=== PATIENT | female | born 1990 | race Two or more races ===

== ENCOUNTER 2025-05-23 14:12 | Emergency (ER) | payer MEDICAID, OTHER ==
[~2025-05-23] VITALS: Ht 170.2 cm; Wt 73.1 kg
[2025-05-23 15:28] LABS: Hematocrit 39.3 % (36.0-46.0); Hemoglobin 13.3 g/dL (12.2-16.2); Mean Corpuscular Hemoglobin 29.5 pg (28.0-32.0); Mean Corpuscular Volume 87.2 fL (80.0-100.0); Nucleated Red Blood Cells % 0.0 %
--- NOTE | 2025-05-23 15:30 | ED.PDOC ---
History of Present Illness HPI Comments 34 y/o F presents with c/c of headache, dizziness, bilateral lower quadrant abdominal pain, nausea, vomiting, fever, chills, and tremors x2 days. Denial of any bloody or bilious vomitus, urinary problems, or further acute symptoms. Known positive sick contacts at home. Only history of nicotine vape use and c osmetic liposuction and breast augmentation surgery. Chief Complaint: General Weakness Time Seen by MD: 14:40 Reviewed Notes: Nurses Notes, Medications, Allergies Allergies: Coded Allergies: Diphenhydramine (Verified Allergy, Unknown, 05/23/25) Metoclopramide (Verified Allergy, Unknown, 05/23/25) Home Meds Active Scripts Ondansetron Odt 4MG Tab (ZOFRAN PO) 4 Mg Tb, 4 MG PO Q12HP PRN for 5 Days, #10 TAB ODT TAB-DISSOLVE IN MOUTH, THEN SWALLOW Prov:COLETTE MCCLAIN MD 05/23/25 Information Source: Patient Mode of Arrival: Ambulatory Severity: Moderate Timing: Days Duration: Since onset Prehospital treatment: None Past Medical History PAST MEDICAL HISTORY: Denies Surgical History (Other): cosmetic liposuction and breast augmentation surgery [employer] History: No Pertinent [employer] History Family History Family History: Family hx of DM, Family hx of Cancer, Family hx of heart corina, Family hx of HTN, Family hx of Kidney corina, Family hx of liver corina, Family hx of lung corina, Family hx of stroke Social History Smoker: Other (nicotine vape use ) Alcohol: Denies ETOH Use Drugs: Denies Drug Use Lives In: Home Constitutional: reports: chills, fever; denies: diaphoresis, fatigue, malaise, sweats, weakness, others EENTM: denies: blurred vision, double vision, ear bleeding, ear discharge, ear drainage, ear pain, ear ringing, eye pain, eye redness, hearing loss, mouth p ain, mouth swelling, nasal discharge, nose bleeding, nose congestion, nose pain, photophobia, tearing, throat pain, throat swelling, voice changes, others Respiratory: denies: cough, hemoptysis, orthopnea, SOB at rest, shortness of br eath, SOB with excertion, stridor, wheezing, others Cardiovascular: denies: chest pain, dizzy spells, diaphoresis, Dyspnea on exertion, edema, irregular heart beat, left arm pain, lightheadedness, palpitations, PND, syncope, others Gastrointestinal: reports: abdominal pain, diarrhea, nausea, vomiting; denies: abdomen distended, blood streaked bowels, constipated, dysphagia, difficulty swallowing, hematemesis, melena, poor appetite, poor fluid intake, rectal bleeding, rectal pain, others Genitourinary: denies: abnormal vagina bleeding, burning, dyspareunia, dysuria, flank pain, frequency, hematuria, incontinence, pain, , vagina discharge, urgency, others Neurological: reports: dizziness, headache; denies: fainting, left sided numbness, left sided weakness, numbness, paresthesia, pre-existing deficit, right sided numbness, right sided weakness, seizure, speech problems, tingling, tremors, weakness, others Musculoskeletal: denies: back pain, gout, joint pain, joint swelling, muscle pain, muscle stiffness, neck pain, others Integumetry: denies: bruises, change in color, change in hair/nails, dryness, laceration, lesions, lumps, rash, wounds, others Allergic/Immunocompromised: denies: Difficulty Healing, Frequent Infections, Hives, Itching, others Hematologic/Lymphatic: denies: anemia, blood clots, easy bleeding, easy bruising, swollen glands, others Endocrine: denies: excessive hunger, excessive sweating, excessive thirst, excessive urination, flushing, intolerance to cold, intolerance to heat, unexplained weight gain, unexplained weight loss, others Psychiatric: denies: anxiety, bipolar disorder, depression, hopeless, panic disorder, schizophrenia, sleepless, suicidal, others All Other Systems: Reviewed and Negative Physical Exam General Appearance: No Apparent Distress HEENT: Normal ENT Inspection, Pharynx Normal, TMs Normal Neck: Full Range of Motion, Non-Tender, Normal, Normal Inspection Respiratory: Chest Non-Tender, Lungs Clear, No Accessory Muscle Use, No Respiratory Distress, Normal Breath Sounds Cardiovascular: No Edema, No JVD, No Murmur, No Gallop, Normal Peripheral Pulses, Regular Rate/Rhythm Breast Exam: Deferred Gastrointestinal: No Organomegaly, Non Tender, No Pulsatile Mass, Normal Bowel Sounds, Soft Genitalia: Deferred Pelvic: Deferred Rectal: Deferred Extremities: No calf tenderness, Normal capillary refill, Normal inspection, Normal range of motion, Non-tender, No pedal edema Musculoskeletal : Apperance: Normal Neurologic: Alert, backend developer II-XII nml as Tested, No Motor Deficits, Normal Affect, Normal Mood, No Sensory Deficits Cerebellar Function: Normal Reflexes: Normal Skin: Dry, Normal Color, Warm Lymphatic: No Adenopathy Was a procedure done? Was a procedure done?: No Differential Dx Considerations may include: viral, URI, UTI, gastritis, GERD, migraines, tensions headache, electrolyte imbalance, dehydration, diverticulitis, ovarian cysts/torsion, PID, among others X-Ray, Labs, Meds, VS Vital Signs Date Time Temp Pulse Resp B/P (MAP) Pulse Ox O2 Delivery O2 Flow Rate FiO2 05/23/25 18:09 94 12 120/69 05/23/25 17:11 102 20 95 Room Air* 0 21 05/23/25 17:11 98.3 102 20 117/71 (86) 95 98.3 05/23/25 17:05 102 20 117/71 05/23/25 14:18 98.0 115 16 107/79 100 98.0 Lab Test 05/23/25 16:50 05/23/25 15:03 Range/Units Urine Color Colorless Yellow Urine Clarity Clear Clear Urine pH 6.5 5.0-9.0 Urine Specific Ider 1.005 1.001-1.035 Urine Protein Negative Negative Urine Ketones Negative Negative Urine Blood Negative Negative /uL Urine Nitrite Negative Negative Urine Bilirubin Negative Negative Urine Urobilinogen Normal Negative mg/dL Urine Leukocyte Esterase Negative Negative /uL Urine RBC <1 0 - 4 /hpf Urine Microscopic WBC 1 0-5 /HPF Urine Squamous Epithelial Cells None seen <5 /hpf Urine Bacteria Few H None Seen /hpf Urine Glucose Normal Normal mg/dL White Blood Count 8.0 4.4-10.8 10^3/uL Red Blood Count 4.50 4.0-5.20 10^6/uL Hemoglobin 13.3 12.2-16.2 g/dL Hematocrit 39.3 36.0-46.0 % Mean Corpuscular Volume 87.2 80.0-100.0 fL Mean Corpuscular Hemoglobin 29.5 28.0-32.0 pg Mean Corpuscular Hemoglobin Concent 33.8 32.0-36.0 g/dL Red Cell Distribution Width 12.7 11.8-14.3 % Platelet Count 464 H 140-450 10^3/uL Mean Platelet Volume 7.0 6.9-10.8 fL Neutrophils (%) (Auto) 62.3 37.0-80.0 % Lymphocytes (%) (Auto) 29.7 10.0-50.0 % Monocytes (%) (Auto) 6.3 0.0-12.0 % Eosinophils (%) (Auto) 1.1 0.0-7.0 % Basophils (%) (Auto) 0.6 0.0-2.0 % Neutrophils # (Auto) 5.0 1.6-8.6 10 ^3/uL Lymphocytes # (Auto) 2.4 0.4-5.4 10 ^3/uL Monocytes # (Auto) 0.5 0-1.3 10 ^3/uL Eosinophils # (Auto) 0.1 0-0.8 10 ^3/uL Basophils # (Auto) 0.1 0-0.2 10 ^3/uL Nucleated Red Blood Cells 0.0 % Sodium Level 140 136-145 mmol/L Potassium Level 3.8 3.5-5.1 mmol/L Chloride Level 104 98-107 mmol/L Carbon Dioxide Level 27 20-31 mmol/L Anion Gap 9 5-15 Blood Urea Nitrogen 5 L 9-23 mg/dL Creatinine 0.74 0.550-1.02 mg/dL Glomerular Filtration Rate Calc 107 >90 mL/min BUN/Creatinine Ratio 6.8 L 10.0-20.0 Serum Glucose 85 74-106 mg/dL Calcium Level 9.5 8.7-10.4 mg/dL Current Medications Medications (Trade) Dose Ordered Sig/Kusum Route Start Time Stop Time Status Last Admin Sodium Chloride 1,000 ml @ 1,000 mls/hr Q1H ONCE IV 05/23/25 14:45 05/23/25 15:44 DC 05/23/25 15:31 Morphine Sulfate 4 mg ONCE ONCE IV 05/23/25 16:30 05/23/25 16:31 DC 05/23/25 17:05 Ondansetron HCl (Zofran) 4 mg ONCE ONCE IV 05/23/25 16:30 05/23/25 16:31 DC 05/23/25 17:06 Sodium Chloride 1,000 ml @ 1,000 mls/hr Q1H ONCE IV 05/23/25 18:30 05/23/25 19:29 05/23/25 18:31 IV Hep-Lock was established The patient was initially given a 1 L bolus of normal saline The patient was given morphine for the headache and Zofran for the nausea The patient is still feels somewhat weak so the patient was started on another bolus of normal saline The CBC and chemistry panel are within normal limits The urine test is negative for any infection The patient is being discharged at this time The patient will return to the emergency department's the condition worsens. Time of 1ST Reevaluation: 15:30 Reevaluation 1ST: Unchanged Patient Education/Counseling: Diagnosis, Treatment, Prognosis, Need For Follow Up Family Education/Counseling: No Family Present SEPSIS Sepsis Screen Date sepsis recognized/suspect: May 23, 2025 Time Sepsis recognized/suspect: 1420 Recent Procedure: No On Antibiotic Therapy: No Respiratory Rate >20: No Heart Rate >90: Yes Temp<36 C (96.8 F) or >38.3 C: No SBP <90 or MAP <65 mmHG: No New Acute Mental Status Change: No Is the patient on CPAP, BIPAP,: No Physician Orders Heplock Iv (05/23/25 14:44) Covid19 Antigen Dawna (05/23/25 ) Sodium Chloride 0.9% (05/23/25 18:30) Vital Signs Date Time Temp Pulse Resp B/P (MAP) Pulse Ox O2 Delivery O2 Flow Rate FiO2 05/23/25 18:09 94 12 120/69 05/23/25 17:11 102 20 95 Room Air* 0 21 05/23/25 17:11 98.3 102 20 117/71 (86) 95 98.3 05/23/25 17:05 102 20 117/71 05/23/25 14:18 98.0 115 16 107/79 100 98.0 Laboratory Tests Test 05/23/25 15:03 White Blood Count 8.0 10^3/uL (4.4-10.8) Medications Medications Dose Ordered Sig/Kusum Route Start Time Stop Time Status Last Admin Dose Admin Morphine Sulfate 4 mg ONCE ONCE IV 05/23/25 16:30 05/23/25 16:31 DC 05/23/25 17:05 Ondansetron HCl 4 mg ONCE ONCE IV 05/23/25 16:30 05/23/25 16:31 DC 05/23/25 17:06 Sodium Chloride 1,000 ml @ 1,000 mls/hr Q1H ONCE IV 05/23/25 14:45 05/23/25 15:44 DC 05/23/25 15:31 Sodium Chloride 1,000 ml @ 1,000 mls/hr Q1H ONCE IV 05/23/25 18:30 05/23/25 19:29 05/23/25 18:31 Departure 1 Departure Time of Disposition: 18:48 Impression: Primary Impression: Viral syndrome Additional Impression: Vomiting Qualified Codes: R11.2 - Nausea with vomiting, unspecified Disposition: HOME / SELF CARE / HOMELESS Condition: Fair e-Prescriptions Ondansetron Odt 4MG Tab (ZOFRAN PO) 4 Mg Tb 4 MG PO Q12HP PRN for 5 Days, #10 TAB ODT TAB-DISSOLVE IN MOUTH, THEN SWALLOW Prov: COLETTE MCCLAIN MD 05/23/25 Discharged With: Self Critical Care Note Critical Care Time?: No Stability Stability form required: No Heart Score Heart Score: Heart Score Response (Comments) Value History N/A 0 EKG N/A 0 Age N/A 0 Risk Factors N/A 0 Troponin N/A 0 Total 0 I personally scribed for COLETTE MCCLAIN MD ([email or web address]) on 05/23/25 at 15:30. Electronically submitted by Zeus Billingsley ([email or web address]). COLETTE MCCLAIN MD May 23, 2025 15:30
[2025-05-23] MEDS: SODIUM CHLORIDE 0.9% 1,000 ML IV ONE ×2 (15:31→18:31)
[2025-05-23 15:34] LABS: Chloride 104 mmol/L (98-107); Potassium 3.8 mmol/L (3.5-5.1); Sodium 140 mmol/L (136-145)
[2025-05-23 15:35] LABS: Anion Gap 9 (5-15); Carbon Dioxide 27 mmol/L (20-31)
[2025-05-23 15:36] LABS: Calcium 9.5 mg/dL (8.7-10.4)
[2025-05-23 15:40] LABS: BUN/Creatinine Ratio 6.8 (10.0-20.0); Glucose 85 mg/dL (74-106)
[2025-05-23 15:42] LABS: Blood Urea Nitrogen 5 mg/dL (9-23)
[2025-05-23] MEDS: MORPHINE SULFATE 4 MG/ML SYR/VIAL IV ONE (17:05)
[2025-05-23] MEDS: ONDANSETRON HCL 4 MG/2 ML VIAL IV ONE (17:06)
[2025-05-23 17:11] VITALS: PULSE 102; RESP 20; TEMP 98.3; O2SAT 95
[2025-05-23 17:45] LABS: Urine Protein, UAD Negative (Negative)
[2025-05-23 18:09] VITALS: BP 120/69; PULSE 94; RESP 12
[2025-05-23] MEDS ORDERED: ZOFR4T PO (18:47)
== END 2025-05-23 19:01 | disposition home or self-care (01) ==
LOC: ER 14:12
DX: B34.9 Viral infection, unspecified (principal); R11.2 Nausea with vomiting, unspecified; F17.290 Nicotine dependence, other tobacco product, uncomplicated; Z79.899 Other long term (current) drug therapy
CPT/HCPCS: 36415; 80048; 81001; 85025; 96361; 96374; 96375; 99284; J2270; J2405; J7030